=== PATIENT | male | born 2000 | race Caucasian/White ===

== ENCOUNTER 2023-03-23 01:32 | Emergency (ER) | payer SELFPAY ==
[~2023-03-23] VITALS: Ht 175.3 cm; Wt 55.0 kg
[~2023-03-23 01:32] MED LIST: ADDERALL XR25 MG PO; ADDERALL20 MG PO; ALL DAY10 MG OR; AMOXICILLIN875 MG OR; IBUPROFEN600 MG PO; NAPROSYN500 MG PO; NORCO1 TA1 PO; POLYTRIM OU; RANITIDINE150 MG PO
[2023-03-23 02:00] VITALS: BP 140/87
[2023-03-23] MEDS ORDERED: HYDROCO/APAP1 TA9 PO (02:06)
[2023-03-23] MEDS ORDERED: ERYTHROMYCIN O3.5 GM OU (02:06)
[2023-03-23 02:15] VITALS: BP 114/72
[2023-03-23 02:30] VITALS: BP 121/74
[2023-03-23 02:45] VITALS: BP 114/68
== END 2023-03-23 02:55 | disposition home or self-care (01) | DRG 125 ==
LOC: ED 01:32
DX: H16.133 Photokeratitis, bilateral (principal); W89.8XXA Exposure to other man-made visible and ultraviolet light, initial encounter